=== PATIENT | female | born 1980 | race Caucasian/White ===

== ENCOUNTER 2018-08-29 19:58 | Emergency (ER) | payer BC ==
[~2018-08-29] VITALS: Ht 152.4 cm; Wt 73.6 kg
[2018-08-29 20:03] VITALS: TEMP 97.8
[2018-08-29 22:48] LABS: HEMOGLOBIN 12.7 g/dl (12.5-16.0); MEAN CELL VOLUME 79 fl (80.0-100.0); MEAN CORPUSCULAR HEMOGLOBIN 26 pg (27.0-31.0); MEAN CORPUSCULAR HGB CONC 33 g/dl (33.0-37.0); MEAN PLATELET VOLUME 11.1 fl (7.4-10.4); PLATELET COUNT 250 K/mm3 (130-400); RED BLOOD COUNT 4.94 M/mm3 (4.10-5.30); REDCELL DISTRIBUTION WIDTH-CV 13.9 % (11.5-14.5)
[2018-08-29 23:04] LABS: C-REACTIVE PROTEIN < 0.5 mg/dL (0.0-0.9)
[2018-08-29 23:30] LABS: ALANINE AMINOTRANSFERASE 165 U/L (9-52); ALBUMIN 4.1 gm/dL (3.5-5.0); ALKALINE PHOSPHATASE 98 U/L (50-136); ANION GAP 10 mmol/L (7-16); AST,SGOT 220 U/L (15-37); BILIRUBIN,TOTAL 0.4 mg/dL (0.0-1.0); BLOOD UREA NITROGEN 15 mg/dL (7-17); CALCIUM 9.1 mg/dL (8.4-10.2); CARBON DIOXIDE 25 mmol/L (22-30); CHLORIDE 103 mmol/L (98-107); CREATININE, serum 0.94 mg/dL (0.52-1.25); GLUCOSE 104 mg/dL (74-106); LIPASE 105 U/L (23-300); SODIUM 137 mmol/L (137-145); TOTAL PROTEIN 7.4 gm/dL (6.4-8.2)
[2018-08-29 23:41] LABS: COLLECTION METHOD CLEAN CATCH
[2018-08-29 23:54] LABS: MUCOUS Present /lpf; PH 8 (5-8); URINE APPEARANCE Clear; URINE BACTERIA Rare /hpf; URINE BILIRUBIN Negative (NEGATIVE); URINE BLOOD 1+ (NEGATIVE); URINE COLOR Yellow; URINE GLUCOSE Negative (NEGATIVE); URINE KETONE Negative (NEGATIVE); URINE LEUKOCYTE ESTERASE Trace (NEGATIVE); URINE NITRATE Negative (NEGATIVE); URINE PROTEIN(semi-quant) Negative (NEGATIVE); URINE RBC 0-2 /hpf; URINE UROBILINOGEN Negative (NEGATIVE)
[2018-08-29] MEDS ORDERED: LEVOXYL0.05 MG PO (23:59)
[2018-08-30] MEDS ORDERED: OMNICEF 300MG300 MG PO ×2 (02:41→03:14)
[2018-08-30] MEDS ORDERED: NORCO 325 MG-51 TAB PO (03:14)
[2018-08-30] MEDS ORDERED: ZOFRAN ODT4 MG PO (03:14)
[2018-08-30] MEDS ORDERED: FLOMAX 0.40.4 MG/CAP PO (03:14)
[2018-08-30 03:15] VITALS: BP 119/78; PULSE 105
== END 2018-08-30 03:38 | disposition home or self-care (01) ==
LOC: COL.ER 19:58
PROVIDERS: Physician Assistant
DX: N13.2 Hydronephrosis with renal and ureteral calculous obstruction (principal); N39.0 Urinary tract infection, site not specified; E03.9 Hypothyroidism, unspecified; Z90.49 Acquired absence of other specified parts of digestive tract
CPT/HCPCS: A4216; J0696; J1885; J2405; J7030; Q9967

== ENCOUNTER 2018-09-04 06:28 | Day surgery (SDC) | payer BC ==
[2018-09-04] VITALS (8 sets, daily range): BP systolic 117–135; BP diastolic 75–89; PULSE 86–104; TEMP 97.1–98.2
[~2018-09-04] VITALS: Ht 152.4 cm; Wt 70.5 kg
[~2018-09-04 06:28] MED LIST: FLOMAX 0.40.4 MG/CAP PO; LEVOXYL0.05 MG PO; NORCO 325 MG-51 TAB PO; OMNICEF 300MG300 MG PO; ZOFRAN ODT4 MG PO
--- NOTE | 2018-09-04 10:30 | NUR ---
Patient arrives to [facility] [place] [address] via cart, accompanied by [employer] TECHNICIAN Didi. Patient is drowsy, but easily aroused to voice. She denies any pain, complains of some mild nausea. Lights turned down, monitoring applied. VSS and WNL on room air. Call light in reach. Will continue to monitor.
--- NOTE | 2018-09-04 10:45 | NUR ---
Patient is asleep in room. VSS and WNL on room air. Family brought to the bedside. Discharge criteria discussed with patient and family. Will continue to monitor.
--- NOTE | 2018-09-04 11:00 | NUR ---
Patient is sleeping. Easily aroused to voice and oriented. Denies pain. Complains of some mild dizziness. VSS and WNL on room air. Will continue to monitor.
--- NOTE | 2018-09-04 11:15 | NUR ---
Patient escorted to restroom at this time.
--- NOTE | 2018-09-04 11:20 | NUR ---
Patient voids pink urine and returns to room. Gait is steady with standby assist.
--- NOTE | 2018-09-04 11:30 | NUR ---
VSS and WNL on room air. Patient sitting up in bed, eating ice cream and drinking juice. Tolerating PO well. Denies any pain, nausea, or need at this time. Denies any dizziness.
--- NOTE | 2018-09-04 12:10 | NUR ---
Patient has met discharge criteria. Discharge instructions discussed, denies any questions, and verbalizes understanding. PIV removed with catheter intact and hemostasis achieved. Patient changing to clothing independently.
--- NOTE | 2018-09-04 12:25 | NUR ---
Patient escorted to exit via wheelchair. Discharged to home with ride in private vehicle at 1225.
== END 2018-09-04 12:25 | disposition home or self-care (01) ==
LOC: SDCO 06:28
DX: N20.2 Calculus of kidney with calculus of ureter (principal); Z79.899 Other long term (current) drug therapy
CPT/HCPCS: C1769; C2617; J0690; J1100; J1885; J2250; J2405; J2704; J3010; J7120; Q9967

== ENCOUNTER 2023-04-22 13:46 | Inpatient (IN) | payer BC ==
[~2023-04-22] VITALS: Ht 152.4 cm; Wt 79.1 kg
[2023-04-22] VITALS (16 sets, daily range): BP systolic 88–135; BP diastolic 49–83; PULSE 74–109; TEMP 97.7–98.1
[~2023-04-22 13:46] MED LIST changes: +ASPIRIN 81M81 MG/TA2 PO; +GLUCOPHAGE500 MG/TAB PO; +NORMODYNE100 MG PO; +PRENATAL TABLET PO; +SLOW FE142 MG PO
--- NOTE | 2023-04-22 14:30 | NUR ---
PT transported via wheelchair to LR3. pt came in complaining of spotting. pt denies any leaking of fluid or regular contractions. pt reports good movement. FHR monitor/toco applied. Vital signs WNL. afebrile. 1415 This rn attempts SVE. pt refuses. 1435 this rn calls Nathan archer RN to ask if she can talk to pt about SVE. 1438 this rn on phone updating Dr Encinas. Nathan Archer RN comes to desk to notify this RN that pt is ruptured. Nathan Archer RN did amniosure and it was positive.
[2023-04-22 15:54] LABS: HEMOGLOBIN 11.1 g/dl (12.5-16.0); MEAN CELL VOLUME 77 fl (80.0-100.0); MEAN CORPUSCULAR HEMOGLOBIN 25 pg (27-31); MEAN CORPUSCULAR HGB CONC 32 g/dl (33.0-37.0); PLATELET COUNT 272 K/mm3 (130-400); RED BLOOD COUNT 4.48 M/mm3 (4.10-5.30); REDCELL DISTRIBUTION WIDTH-CV 16.9 % (11.5-14.5)
[2023-04-22 15:56] LABS: HEMATOCRIT 34.3 % (37.0-47.0)
[2023-04-22 16:09] LABS: BAND 3 % (0-10); EOSINOPHIL 3 % (0-4); LYMPHOCYTE 25 % (20.0-51.0); METAMYELOCYTE 2 % (0-0); NEUTROPHILS 62 % (42.0-75.2); PLATELET ESTIMATE NORMAL (NORMAL)
[2023-04-22 16:10] LABS: ANISOCYTOSIS 1+; MICROCYTOSIS 1+
[2023-04-22 16:11] LABS: HYPOCHROMIA 1+
[2023-04-23 00:50] VITALS: BP 146/88; PULSE 99; TEMP 98.3
[2023-04-23 07:50] VITALS: BP 138/73; PULSE 92; TEMP 97.5
--- NOTE | 2023-04-23 09:45 | NUR ---
Initial visit; Parents thanked Travel Manager for offering congratulations and Blessings for the of their son. Travel Manager thanked family for choosing [place].
[2023-04-23 17:13] VITALS: BP 138/72; PULSE 88; TEMP 98
[2023-04-23 21:00] VITALS: BP 139/69; PULSE 102; TEMP 97.9
[2023-04-24 08:00] VITALS: BP 148/87; PULSE 99; TEMP 97.4
[2023-04-24] MEDS ORDERED: IBU800 M1 PO (11:45)
[2023-04-24] MEDS ORDERED: TYLENOL 500MG500 MG PO (11:45)
[2023-04-24] MEDS ORDERED: ROXICODONE 55 MG/TAB PO (11:45)
[2023-04-24 12:32] LABS: MEAN CELL VOLUME 78 fl (80.0-100.0); MEAN CORPUSCULAR HGB CONC 32 g/dl (33.0-37.0); MEAN PLATELET VOLUME 11.1 fl (7.4-10.4); PLATELET COUNT 271 K/mm3 (130-400); RED BLOOD COUNT 3.97 M/mm3 (4.10-5.30); REDCELL DISTRIBUTION WIDTH-CV 16.9 % (11.5-14.5)
[2023-04-24 12:46] LABS: HEMATOCRIT 30.9 % (37.0-47.0); HEMOGLOBIN 9.8 g/dl (12.5-16.0); MEAN CORPUSCULAR HEMOGLOBIN 25 pg (27-31)
[2023-04-24 16:30] VITALS: BP 143/83; PULSE 96; TEMP 97.4
[2023-04-24 21:00] VITALS: BP 150/86; PULSE 112; TEMP 98.7
[2023-04-25 07:36] VITALS: BP 141/77; PULSE 99; TEMP 97.9
== END 2023-04-25 13:10 | disposition home or self-care (01) | DRG 787 ==
LOC: LDRO 13:46 → OB 14:00 → LDR 14:00 → OB 18:30
PROVIDERS: ADMIT Student in an Organized Health Care Education/Training Program
PROC: 10D00Z1 Extraction of Products of Conception, Low, Open Approach (ICD-10-PCS; principal; 2023-04-22)
DX: O32.1XX0 Maternal care for breech presentation, not applicable or unspecified (principal); N39.0 Urinary tract infection, site not specified; O10.92 Unspecified pre-existing hypertension complicating childbirth; O23.43 Unspecified infection of urinary tract in pregnancy, third trimester; Z3A.38 38 weeks gestation of pregnancy; Z37.0 Single live birth; E03.9 Hypothyroidism, unspecified; O99.02 Anemia complicating childbirth; D64.9 Anemia, unspecified; O99.284 Endocrine, nutritional and metabolic diseases complicating childbirth; O99.214 Obesity complicating childbirth; O34.13 Maternal care for benign tumor of corpus uteri, third trimester; D25.1 Intramural leiomyoma of uterus; O42.92 Full-term premature rupture of membranes, unspecified as to length of time between rupture and onset of labor; O24.425 Gestational diabetes mellitus in childbirth, controlled by oral hypoglycemic drugs; Z88.8 Allergy status to other drugs, medicaments and biological substances; Z79.890 Hormone replacement therapy
CPT/HCPCS: J0171; J0456; J0665; J0690; J1100; J1885; J2371; J2405; J2590; J7050; J7120